=== PATIENT | male | born 1960 | race Caucasian/White ===

== ENCOUNTER 2016-12-25 12:40 | Inpatient (IN) | payer MEDICARE, OTHER ==
[~2016-12-25] VITALS: Ht 167.6 cm; Wt 80.9 kg
[~2016-12-25 12:40] MED LIST: ALLO100T PO; ASPI-1159 PO; ATOR10TA69 PO; COLC0.6T66 PO; DONE5TAB33 PO; LORA10TA7 PO; PARO-41 PO; TRAZ-129 PO; TRIH2TAB3 PO; [UNRECOGNIZED DRUG - CODE] PO
[2016-12-25] MEDS ORDERED: SODIUM CHLORIDE 0.9% 1,000 ML IV ONE (14:00)
[2016-12-25 14:31] LABS: HEMATOCRIT. 44.5 % (42.0-52.0); HEMOGLOBIN. 14.9 g/dL (14.0-18.0); MEAN CORPUSCULAR HEMOGLOBIN 30.8 pg (28.0-32.0); MEAN CORPUSCULAR VOLUME 92.1 fL (80.0-94.0); MEAN PLATELET VOLUME 7.6 fl (7.4-10.4); PLATELET 219 x1000/uL (130-400); RED BLOOD CELL COUNT 4.84 mill/uL (4.7-6.1); RED CELL DISTRIBUTION WIDTH 14.3 % (11.6-14.6)
[2016-12-25 14:39] LABS: INR 1.2; PROTHROMBIN TIME 12.1 sec
[2016-12-25 14:44] LABS: CARBON DIOXIDE 32 mEq/L (21-32); CHLORIDE 103 mEq/L (98-107); ETHANOL BLOOD < 10 mg/dL
[2016-12-25 14:48] LABS: CREATINE KINASE 195 IU/L (39-308); PHENYTOIN < 0.4 ug/mL (10-20); TROPONIN I < 0.02 ng/mL (0.00-0.04)
[2016-12-25 14:52] LABS: AMMONIA 15 uMol/L (<32)
[2016-12-25 14:55] LABS: CARBAMAZEPINE < 0.5 ug/mL (4-12); PHENOBARBITAL < 2.1 ug/mL (15.0-40.0); VALPROIC ACID < 3.0 ug/mL (50-100)
[2016-12-25 15:32] LABS: CLARITY URINE CLEAR (CLEAR); COLOR URINE YELLOW (YELLOW); GLUCOSE URINE NEGATIVE (NEGATIVE); KETONES URINE NEGATIVE (NEGATIVE); LEUKOCYTE ESTERASE URINE 2+ (NEGATIVE); NITRITE URINE NEGATIVE (NEGATIVE); OCCULT BLOOD URINE 1+ (NEGATIVE); PH URINE 7.5 (4.5-8.0); PROTEIN URINE 1+ (NEGATIVE)
[2016-12-25 15:44] LABS: *AMPHETAMINES SCREEN URINE NEGATIVE (NEGATIVE); *BARBITURATES SCREEN URINE NEGATIVE (NEGATIVE); *BENZODIAZEPINES SCREEN URINE NEGATIVE (NEGATIVE); *COCAINE SCREEN URINE NEGATIVE (NEGATIVE); CANNABINOID URINE SCREEN NEGATIVE (NEGATIVE); METHADONE URINE SCREEN NEGATIVE (NEGATIVE); OPIATES URINE SCREEN NEGATIVE (NEGATIVE); PHENCYCLIDINE URINE SCREEN NEGATIVE (NEGATIVE)
[2016-12-25 15:46] LABS: PLATELET ESTIMATE NORMAL
[2016-12-25] MEDS ORDERED: CEFTRIAXONE 1 G PREMIX 50 ML IV ONE (16:00)
[2016-12-25 18:45] VITALS: BP_SYST 124; BP_SYST 128; BP_DIAS 83
[2016-12-25] MEDS ORDERED: MAGNESIUM/ALUMINUM HYDROXIDE/SIMETHICONE 30ML UDC PO PRN (19:00)
[2016-12-25] MEDS ORDERED: ACETAMINOPHEN 325MG TABLET PO PRN (19:00)
[2016-12-25] MEDS ORDERED: IPRATROPIUM/ALBUTEROL 0.5-3(2.5)MG/3ML NEB INH PRN (19:00)
[2016-12-25] MEDS ORDERED: ONDANSETRON HCL 4MG/2ML VIAL IV PRN (19:00)
[2016-12-25] MEDS ORDERED: DIPHENHYDRAMINE 50MG/ML VIAL IV PRN (19:00)
[2016-12-25 19:30] VITALS: BP 121/58
[2016-12-25 20:00] VITALS: BP 121/58
[2016-12-25] MEDS: ATORVASTATIN CALCIUM 10MG TABLET PO SCH (20:51)
[2016-12-25] MEDS: SODIUM CHLORIDE 0.9% INJ 3ML FLUSH IVF SCH (20:51)
[2016-12-25] MEDS ORDERED: TRAZODONE HCL 50MG TABLET PO SCH (21:00)
[2016-12-26] VITALS: BP 107/73
[2016-12-26 04:00] VITALS: BP 106/61
[2016-12-26] MEDS: SODIUM CHLORIDE 0.9% INJ 3ML FLUSH IVF SCH ×3 (05:32→20:08)
[2016-12-26 08:00] VITALS: BP 108/72
[2016-12-26] MEDS ORDERED: PAROXETINE HCL 20MG TABLET PO SCH (09:00)
[2016-12-26] MEDS ORDERED: TRIHEXYPHENIDYL HCL 2 MG TABLET PO SCH (09:00)
[2016-12-26] MEDS ORDERED: DONEPEZIL HCL 5MG TABLET PO SCH (09:00)
[2016-12-26] MEDS: ASPIRIN 81MG EC TABLET PO SCH (09:21)
[2016-12-26] MEDS: ALLOPURINOL 100 MG TABLET PO SCH (09:21)
[2016-12-26] MEDS: COLCHICINE 0.6MG TABLET PO SCH (09:21)
[2016-12-26] MEDS: LORATADINE 10MG TABLET PO SCH (09:21)
[2016-12-26] MEDS: DONEPEZIL HCL 5MG TABLET PO SCH (09:21)
[2016-12-26 12:03] VITALS: BP 112/68
[2016-12-26 16:00] VITALS: BP 118/78
[2016-12-26] MEDS ORDERED: CEFTRIAXONE 1 G PREMIX 50 ML IV SCH (16:00)
[2016-12-26] MEDS: ATORVASTATIN CALCIUM 10MG TABLET PO SCH (20:08)
[2016-12-26 20:10] VITALS: BP 92/63
[2016-12-27 00:01] VITALS: BP 106/77
[2016-12-27 04:00] VITALS: BP 112/69
[2016-12-27] MEDS: SODIUM CHLORIDE 0.9% INJ 3ML FLUSH IVF SCH ×2 (05:26→13:08)
[2016-12-27] MEDS: ALLOPURINOL 100 MG TABLET PO SCH (09:11)
[2016-12-27] MEDS: COLCHICINE 0.6MG TABLET PO SCH (09:11)
[2016-12-27] MEDS: LORATADINE 10MG TABLET PO SCH (09:11)
[2016-12-27] MEDS: ASPIRIN 81MG EC TABLET PO SCH (09:11)
[2016-12-27] MEDS: DONEPEZIL HCL 5MG TABLET PO SCH (09:11)
[2016-12-27 12:00] VITALS: BP 141/84
[2016-12-27 13:25] VITALS: BP 142/82
[2016-12-27 16:00] VITALS: BP 105/86
[2016-12-27 16:58] VITALS: BP 105/86
[2016-12-27] MEDS ORDERED: AMOXICILLIN 500 MG CAPSULE PO SCH (22:00)
== END 2016-12-27 18:10 | disposition home or self-care (01) | DRG 74 ==
LOC: ER 12:40 → 7WST 15:58 → EDBEDREQ 16:06 → ENRESERV 17:38 → 7WST 22:00
PROVIDERS: ADMIT Internal Medicine; ATTEND Internal Medicine
DX: G90.8 Other disorders of autonomic nervous system (principal); N39.0 Urinary tract infection, site not specified; M10.9 Gout, unspecified; E86.0 Dehydration; F03.90 Unspecified dementia, unspecified severity, without behavioral disturbance, psychotic disturbance, mood disturbance, and anxiety; Z95.0 Presence of cardiac pacemaker; Q90.9 Down syndrome, unspecified; Z79.82 Long term (current) use of aspirin; Z79.899 Other long term (current) drug therapy
CPT/HCPCS: 36415; 70450; 71010; 80053; 80156; 80165; 80184; 80185; 80305; 81001; 82140; 82550; 83605; 83880; 84443; 84484; 85025; 85610; 87077; 87086; 87186; 93005; 96361; 96365; 99285; G0482; J0696; J7030; J7050; A4315